=== PATIENT | male | born 1995 | race Caucasian/White ===

== ENCOUNTER 2016-08-21 02:47 | Emergency (ER) | payer BC, OTHER ==
[2016-08-21 02:59] VITALS: BP 122/57
--- NOTE | 2016-08-21 03:38 | ED ---
Kennedy Cervantes Salem, scribed for Rajesh Mata MD on 08/21/16 at 0314 . Laceration/Wound HPI - HPI Summary HPI Summary: Patient is a 21 y/o male who present to the ED per EMS for a laceration on the left eyelid since late yesterday night. He reports tripping over a table and hitting his eye. Pt reports no other sx. - History of Current Complaint Stated Complaint: LEFT EYE LAC Time Seen by Provider: 08/21/16 03:04 Hx Obtained From: Patient Aggravating: Nothing Alleviating: Nothing Pain Intensity: 4 Pain Scale Used: 0-10 Numeric Associated Signs & Symptoms: Negative PMH/Surg Hx/FS Hx/Imm Hx Previously Healthy: Yes Infectious Disease History: No Infectious Disease History: Denies: Traveled Outside the [place] in Last 30 Days - Family History Known Family History: Negative: Cardiac Disease, Diabetes - Social History Alcohol Use: Occasionally Substance Use Type: Reports: None Hx Tobacco Use: No Smoking Status (MU): Never Smoked Tobacco Review of Systems Negative: Fever Positive: Other - Left eyelid laceration. All Other Systems Reviewed And Are Negative: Yes Physical Exam Triage Information Reviewed: Yes Vital Signs On Initial Exam: Initial Vitals Temp Pulse Resp BP Pulse Ox 98.5 F 69 16 122/57 99 08/21/16 02:55 08/21/16 02:55 08/21/16 02:55 08/21/16 02:55 08/21/16 02:55 Vital Signs Reviewed: Yes Appearance: Positive: Well-Appearing, No Pain Distress Skin: Positive: Warm - lac to lt eyelid Eyes: Positive: EOMI, AUDREY ENT: Positive: Hearing grossly normal Neck: Positive: Supple Respiratory/Lung Sounds: Positive: Breath Sounds Present Cardiovascular: Positive: RRR Musculoskeletal: Positive: Strength/ROM Intact Neurological: Positive: Sensory/Motor Intact, Alert, Oriented to Person Place, Time Psychiatric: Positive: Affect/Mood Appropriate Procedures - Laceration/Wound Repair 1 Location: Other - eyelid Description: Linear Anesthesia: Local, 1.0%, Lido, Epi Length, Depth and Shape: 3cm Laceration/Wound Explored: clean Closure: Single Layer Debridement: minimal Suture Type: Nylon - 6-0 Number of Sutures: 2 Layer Closure?: No Sterile Dressing Applied?: Yes Diagnostics - Vital Signs Vital Signs Temp Pulse Resp BP Pulse Ox 08/21/16 02:55 98.5 F 69 16 122/57 99 - Laboratory Lab Statement: Any lab studies that have been ordered have been reviewed, and results considered in the medical decision making process. Re-Evaluation - Re-Evaluation First Eval Re-Evaluation Time: 03:26 Change: Improved Laceration Repair Course/Dx - Clinical Impression Provider Diagnoses: Eyelid laceration, left Discharge - Discharge Plan Condition: Stable Disposition: HOME Patient Education Materials: Facial Laceration (ED) Referrals: [facility] CHRISTOPHER Sapp [Primary Care Provider] - Additional Instructions: Follow up with PCP. Suture removal in 5 days. The documentation as recorded by the Kennedy raymundo Salem accurately reflects the service I personally performed and the decisions made by , Rajesh Mata MD.
== END 2016-08-21 03:55 | disposition home or self-care (01) ==
LOC: ED 02:47
DX: S01.112A Laceration without foreign body of left eyelid and periocular area, initial encounter (principal); W19.XXXA Unspecified fall, initial encounter; Y93.9 Activity, unspecified; Y92.9 Unspecified place or not applicable
CPT/HCPCS: 12013; 99281